=== PATIENT | female | born 1995 | race American Indian/Alaskan Native ===

== ENCOUNTER 2019-05-21 23:26 | Emergency (ER) | payer OTHER ==
[2019-05-22] MEDS ORDERED: ACETAMINOPHEN 500 MG TAB PO ONE (03:49)
[2019-05-22] MEDS ORDERED: IBUPROFEN 600 MG TAB PO ONE (03:49)
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
[2019-05-22 05:28] VITALS: BP 110/66
== END 2019-05-22 05:29 | disposition home or self-care (01) ==
LOC: ED 23:26
DX: S00.03XA Contusion of scalp, initial encounter (principal); G44.319 Acute post-traumatic headache, not intractable; V89.2XXA Person injured in unspecified motor-vehicle accident, traffic, initial encounter; Y93.89 Activity, other specified; Y92.89 Other specified places as the place of occurrence of the external cause; Y99.8 Other external cause status
CPT/HCPCS: 70450; 70486